=== PATIENT | male | born 1955 | race Caucasian/White ===

== ENCOUNTER → 2018-03-10 | Outpatient (CLI) | payer MEDICARE, OTHER ==
[~2018-03-10] MED LIST: AMLO5 PO; ASCO500 PO; ASPI81CH PO; Ativan1 MG PO; BACL10 PO; BACL20 PO; CARBI50 PO; CARBIDOPA-LEVO1 EAC1 PO; CHOL10002 PO; CLOB.05TC TOP; CYCL10 PO; Diclofenac Pota50 MG; FLUO.05TO; GLUCOSAMINE MSM COMP; HYDR1TAB94 PO; Hydrocodone-Ap1 EA23; IBUP400 PO; LISHYD1012 PO; METO25ER PO; METO50ER PO; Neurontin 300300 MG PO; OXYACE5T PO; PANT40 PO; PARO12.5 PO; PARO25; PARO25 PO; PROP10 PO; Pantoprazole So40 MG; Percocet 5-3251 EACH PO; SUCR1 PO; SUCRALFATE 100 MG/ML PO; TURMERIC500 M2 PO; ZESTORETIC 20-121 EA; [UNRECOGNIZED DRUG - OTHER]
== END ==
LOC: LAB 16:40 → LAB SHORT 16:40
DX: J02.9 Acute pharyngitis, unspecified (principal)
CPT/HCPCS: 87070

== ENCOUNTER 2018-12-03 08:54 | Day surgery (SDC) | payer MEDICARE, OTHER ==
[~2018-12-03] VITALS: Ht 175.3 cm; Wt 70.8 kg
[~2018-12-03 08:54] MED LIST changes: +ACET325 PO; +CBD CREAM TOP; +DULO30 PO; +LISI5 PO; +Omeprazole20 M1 PO
--- NOTE | 2018-12-03 09:44 | NUR ---
PT ADMITTED TO [facility]. AGREES WITH PLANNED SUGERY. MEDS, ALLERGIES AND HX REVIEWED. LUNG SOUNDS CLEAR.
--- NOTE | 2018-12-03 12:26 | NUR ---
Patient up to Ambulate independently. Gait steady. Dressing to procedure site clean, dry, intact with no visible drainage, swelling, erythema or bruising noted. Patient States Post-Procedure ride home has been arranged. Discharged via wheelchair to private car for ride home.
== END 2018-12-03 12:36 | disposition home or self-care (01) ==
LOC: ORSCMMR 08:54 → ORD 10:30 → ORSCMMR 12:36
PROVIDERS: Surgery
PROC: 0JBD0ZZ Excision of Right Upper Arm Subcutaneous Tissue and Fascia, Open Approach (ICD-10-PCS; principal; 2018-12-03 10:30)
DX: D17.1 Benign lipomatous neoplasm of skin and subcutaneous tissue of trunk (principal); I10 Essential (primary) hypertension; Z79.899 Other long term (current) drug therapy
CPT/HCPCS: 88304; J0690; J2250; J3010; J7120

== ENCOUNTER → 2020-10-31 | Outpatient (CLI) | payer MEDICARE, OTHER ==
[2020-10-31 13:41] LABS: BASOPHILS ABSOLUTE AUTO 0.05 K/mm3 (0.00-0.23); BASOPHILS PERCENT AUTO 1 % (0-2); EOSINOPHILS ABSOLUTE AUTO 0.12 K/mm3 (0.00-0.68); EOSINOPHILS PERCENT AUTO 2 % (0-6); Hematocrit 42.8 % (37.0-53.0); Hemoglobin 13.7 g/dL (13.5-17.5); IMMATURE GRAN ABSOLUTE AUTO 0.03 K/mm3 (0.00-0.10); IMMATURE GRAN PERCENT AUTO 0 % (0-1); LYMPHOCYTES ABSOLUTE AUTO 0.96 K/mm3 (0.84-5.20); LYMPHOCYTES PERCENT AUTO 14 % (21-46); MONOCYTES ABSOLUTE AUTO 0.84 K/mm3 (0.16-1.47); MONOCYTES PERCENT AUTO 12 % (4-13); Mean Corpuscular HGB 29.9 pg (26.0-34.0); Mean Corpuscular Volume 93 fL (80-100); Mean Platelet Volume 10.4 fL (9.1-12.4); NEUTROPHILS ABSOLUTE AUTO 4.98 K/mm3 (1.96-9.15); NEUTROPHILS PERCENT AUTO 71 % (41-73); Platelet Count 296 K/mm3 (150-400); RDW Coefficient Variation 13.2 % (11.7-14.2); RDW Standard Deviation 44.9 fL (35.1-46.3); Red Blood Cell Count 4.58 M/mm3 (4.30-5.90); White Blood Cell Count 6.98 K/mm3 (4.00-11.30)
[2020-10-31 14:17] LABS: Alanine Aminotransfer (ALT/SGP 12 U/L (12-78); Albumin, Blood 4.1 g/dL (3.4-5.0); Albumin/Globulin Ratio 1.3 (0.8-1.8); Alk Phos 98 U/L (50-136); Anion Gap 3 mmol/L (6-16); Aspartate Aminotrans (AST/SGOT 21 U/L (12-37); Bilirubin, Total 0.4 mg/dL (0.1-1.0); Blood Urea Nitrogen 20 mg/dL (8-24); Bun/Creatinine Ratio 26.6 (12.0-20.0); CHOL/HDL RATIO 3.2; CO2, Blood 31 mmol/L (21-32); Calcium, Blood 9.4 mg/dL (8.5-10.1); Chloride, Blood 103 mmol/L (98-108); Cholesterol 188 mg/dL (50-200); Creatinine, Blood 0.75 mg/dL (0.60-1.20); Globulin, Blood 3.2 g/dL (2.2-4.0); Glomerular Filtration Rate >60 (60-); Glucose, Blood 94 mg/dL (70-99); HDL Cholesterol 59 mg/dL (>39); LDL/HDL RATIO 1.8; Low Density Lipoprotein Chol 104 mg/dL (0-110); Potassium, Blood 4.3 mmol/L (3.5-5.5); Sodium, Blood 137 mmol/L (136-145); Total Protein, Blood 7.3 g/dL (6.4-8.2); Triglycerides 125 mg/dL (30-160); Very Low Density Lipoprot Chol 25 mg/dL (6-32)
== END | disposition home or self-care (01) ==
LOC: LAB SHORT 09:15
PROVIDERS: Family Medicine
DX: E78.5 Hyperlipidemia, unspecified (principal); I10 Essential (primary) hypertension
CPT/HCPCS: 80053; 80061; 85025

== ENCOUNTER 2021-05-16 09:42 | Emergency (ER) | payer MEDICARE, OTHER ==
[~2021-05-16] VITALS: Ht 175.3 cm; Wt 68.0 kg
== END 2021-05-16 13:10 | disposition home or self-care (01) ==
LOC: ER 09:42
DX: S63.260A Dislocation of metacarpophalangeal joint of right index finger, initial encounter (principal); S63.262A Dislocation of metacarpophalangeal joint of right middle finger, initial encounter; F17.220 Nicotine dependence, chewing tobacco, uncomplicated; Z79.899 Other long term (current) drug therapy; Z79.82 Long term (current) use of aspirin; X50.1XXA Overexertion from prolonged static or awkward postures, initial encounter
CPT/HCPCS: 73130; 73502; 99283-25

== ENCOUNTER → 2023-02-19 | Outpatient (CLI) | payer MEDICARE ==
[2023-02-19 14:41] LABS: BASOPHILS ABSOLUTE AUTO 0.03 K/mm3 (0.00-0.23); BASOPHILS PERCENT AUTO 0 % (0-2); EOSINOPHILS PERCENT AUTO 2 % (0-6); Hematocrit 40.9 % (37.0-53.0); Hemoglobin 13.8 g/dL (13.5-17.5); IMMATURE GRAN ABSOLUTE AUTO 0.02 K/mm3 (0.00-0.10); IMMATURE GRAN PERCENT AUTO 0 % (0-1); LYMPHOCYTES ABSOLUTE AUTO 0.72 K/mm3 (0.84-5.20); LYMPHOCYTES PERCENT AUTO 11 % (21-46); MONOCYTES ABSOLUTE AUTO 0.72 K/mm3 (0.16-1.47); MONOCYTES PERCENT AUTO 11 % (4-13); Mean Corpuscular HGB 30.3 pg (26.0-34.0); Mean Corpuscular HGB Conc 33.7 g/dL (31.5-36.5); Mean Corpuscular Volume 90 fL (80-100); NEUTROPHILS ABSOLUTE AUTO 5.16 K/mm3 (1.96-9.15); NEUTROPHILS PERCENT AUTO 76 % (41-73); Platelet Count 346 K/mm3 (150-400); RDW Coefficient Variation 12.5 % (11.7-14.2); RDW Standard Deviation 41.7 fL (35.1-46.3); Red Blood Cell Count 4.55 M/mm3 (4.30-5.90); White Blood Cell Count 6.75 K/mm3 (4.00-11.30)
[2023-02-19 15:25] LABS: Alanine Aminotransfer (ALT/SGP 15 U/L (12-78); Albumin, Blood 4.2 g/dL (3.4-5.0); Albumin/Globulin Ratio 1.4 (0.8-1.8); Alk Phos 107 U/L (50-136); Anion Gap 2 mmol/L (6-16); Aspartate Aminotrans (AST/SGOT 24 U/L (12-37); Bilirubin, Total 0.3 mg/dL (0.1-1.0); Blood Urea Nitrogen 15 mg/dL (8-24); Bun/Creatinine Ratio 18.9 (12.0-20.0); CHOL/HDL RATIO 2.4; CO2, Blood 30 mmol/L (21-32); Calcium, Blood 9.4 mg/dL (8.5-10.1); Chloride, Blood 101 mmol/L (98-108); Cholesterol 160 mg/dL (50-200); Creatinine, Blood 0.79 mg/dL (0.60-1.20); Globulin, Blood 3.1 g/dL (2.2-4.0); Glomerular Filtration Rate 96 (60-); Glucose, Blood 101 mg/dL (70-99); HDL Cholesterol 66 mg/dL (>39); LDL/HDL RATIO 1.2; Low Density Lipoprotein Chol 77 mg/dL (0-110); Potassium, Blood 4.4 mmol/L (3.5-5.5); Sodium, Blood 133 mmol/L (136-145); Total Protein, Blood 7.3 g/dL (6.4-8.2); Triglycerides 86 mg/dL (30-160); Very Low Density Lipoprot Chol 17 mg/dL (6-32)
== END | disposition home or self-care (01) ==
LOC: LAB SHORT 12:52 → LAB 12:52
PROVIDERS: Family Medicine
DX: I10 Essential (primary) hypertension (principal); Z87.11 Personal history of peptic ulcer disease
CPT/HCPCS: 80053; 80061; 84443; 85025

== ENCOUNTER → 2023-05-30 | Outpatient (CLI) | payer MEDICARE | END | disposition home or self-care (01) | LOC: LAB 10:23 → LAB SHORT 10:23 | DX: I10 Essential (primary) hypertension (principal); R73.01 Impaired fasting glucose | CPT/HCPCS: 36415; 83036 ==

== ENCOUNTER 2024-06-29 20:11 | Inpatient (IN) | payer OTHER ==
[~2024-06-29] VITALS: Ht 175.3 cm; Wt 59.9 kg
[2024-06-29 20:36] LABS: BASOPHILS ABSOLUTE AUTO 0.04 K/mm3 (0.00-0.23); BASOPHILS PERCENT AUTO 0 % (0-2); EOSINOPHILS ABSOLUTE AUTO 0.04 K/mm3 (0.00-0.68); EOSINOPHILS PERCENT AUTO 0 % (0-6); Hemoglobin 10.8 g/dL (13.5-17.5); IMMATURE GRAN PERCENT AUTO 1 % (0-1); LYMPHOCYTES ABSOLUTE AUTO 0.88 K/mm3 (0.84-5.20); LYMPHOCYTES PERCENT AUTO 7 % (21-46); MONOCYTES ABSOLUTE AUTO 0.98 K/mm3 (0.16-1.47); MONOCYTES PERCENT AUTO 8 % (4-13); Mean Corpuscular HGB 32.3 pg (26.0-34.0); Mean Corpuscular HGB Conc 33.8 g/dL (31.5-36.5); Mean Corpuscular Volume 96 fL (80-100); Mean Platelet Volume 9.6 fL (9.1-12.4); NEUTROPHILS ABSOLUTE AUTO 11.06 K/mm3 (1.96-9.15); NEUTROPHILS PERCENT AUTO 84 % (41-73); Platelet Count 296 K/mm3 (150-400); RDW Coefficient Variation 12.3 % (11.7-14.2); Red Blood Cell Count 3.34 M/mm3 (4.30-5.90)
[2024-06-29 20:49] LABS: Albumin, Blood 3.4 g/dL (3.4-5.0); Albumin/Globulin Ratio 1.2 (0.8-1.8); Bilirubin, Total 0.4 mg/dL (0.1-1.0); Bun/Creatinine Ratio 49.4 (12.0-20.0); Calcium, Blood 9.2 mg/dL (8.5-10.1); Creatinine, Blood 0.95 mg/dL (0.60-1.20); Globulin, Blood 2.9 g/dL (2.2-4.0); Potassium, Blood 5.1 mmol/L (3.5-5.5); Total Protein, Blood 6.3 g/dL (6.4-8.2)
[2024-06-29] MEDS ORDERED: Pantoprazole Sodium 40 MG Injection IV ONE (21:40)
[2024-06-29] MEDS ORDERED: NS 1,000 ML IV SCH (23:50)
[2024-06-30] VITALS (32 sets, daily range): BP systolic 84–181; BP diastolic 53–99
[2024-06-30 00:07] LABS: Source, Urine Voided
[2024-06-30 00:11] LABS: Bilirubin, Urine Neg (Neg); Blood, Urine Neg (Neg); Glucose Qualitative, Urine Neg (Neg); Ketones, Urine 1+ (Neg); Leukocyte Esterase, Urine Neg (Neg); Nitrite, Urine Neg (Neg); Protein, Urine 2+ (Neg); Urobilinogen, Urine NORM (Normal)
[2024-06-30 00:24] LABS: Appearance, Urine Clear (Clear); Color, Urine Yellow (P-Yellow)
[2024-06-30 00:25] LABS: Amorphous Light (0-Heavy); Bacteria Rare /hpf; Calcium Oxalate Crystals Mod /hpf; Red Blood Cells, Urine Not Seen /hpf (0-2); Squamous Epithelial Cells Few /hpf (Few); White Blood Cells, Urine Not Seen /hpf (0-5)
[2024-06-30 01:01] LABS: Hematocrit 29.8 % (37.0-53.0); Hemoglobin 9.9 g/dL (13.5-17.5)
[2024-06-30 03:38] LABS: Hematocrit 28.6 % (37.0-53.0); Hemoglobin 9.6 g/dL (13.5-17.5); Mean Corpuscular HGB 31.6 pg (26.0-34.0); Mean Corpuscular HGB Conc 33.6 g/dL (31.5-36.5); Mean Corpuscular Volume 94 fL (80-100); Mean Platelet Volume 9.3 fL (9.1-12.4); Platelet Count 235 K/mm3 (150-400); RDW Coefficient Variation 12.4 % (11.7-14.2); RDW Standard Deviation 42.8 fL (35.1-46.3); Red Blood Cell Count 3.04 M/mm3 (4.30-5.90); White Blood Cell Count 8.12 K/mm3 (4.00-11.30)
[2024-06-30 03:59] LABS: Bun/Creatinine Ratio 56.8 (12.0-20.0); Calcium, Blood 8.8 mg/dL (8.5-10.1); Creatinine, Blood 0.78 mg/dL (0.60-1.20); Potassium, Blood 4.6 mmol/L (3.5-5.5)
[2024-06-30] MEDS ORDERED: CARBIDOPA-LEVO1 EAC9 PO (08:03)
[2024-06-30] MEDS ORDERED: FentaNYL Citrate 50 MCG/ML 2 ML Injection IV PRN ×2 (09:15→19:55)
[2024-06-30 10:29] LABS: Hematocrit 26.5 % (37.0-53.0); Hemoglobin 8.8 g/dL (13.5-17.5); Mean Corpuscular HGB 31.7 pg (26.0-34.0); Mean Corpuscular HGB Conc 33.2 g/dL (31.5-36.5); Mean Corpuscular Volume 95 fL (80-100); Mean Platelet Volume 9.1 fL (9.1-12.4); Platelet Count 263 K/mm3 (150-400); RDW Coefficient Variation 12.3 % (11.7-14.2); RDW Standard Deviation 43.4 fL (35.1-46.3); Red Blood Cell Count 2.78 M/mm3 (4.30-5.90); White Blood Cell Count 11.36 K/mm3 (4.00-11.30)
[2024-06-30] MEDS ORDERED: Cyclobenzaprine HCl 10 MG Tab PO PRN (11:30)
[2024-06-30] MEDS ORDERED: Gabapentin 300 MG Cap PO SCH (14:00)
[2024-06-30] MEDS ORDERED: Sodium, Potassium,Mag Sulfates 354 ML PO SCH (16:00)
[2024-06-30] MEDS ORDERED: [UNRECOGNIZED DRUG - OTHER] PO SCH (16:30)
[2024-06-30] MEDS ORDERED: CARBIDOPA PO SCH (16:30)
[2024-06-30 17:25] LABS: Hematocrit 21.4 % (37.0-53.0); Hemoglobin 7.2 g/dL (13.5-17.5); Mean Corpuscular HGB 32.3 pg (26.0-34.0); Mean Corpuscular HGB Conc 33.6 g/dL (31.5-36.5); Mean Corpuscular Volume 96 fL (80-100); Mean Platelet Volume 9.4 fL (9.1-12.4); Platelet Count 264 K/mm3 (150-400); RDW Coefficient Variation 12.6 % (11.7-14.2); RDW Standard Deviation 43.8 fL (35.1-46.3); Red Blood Cell Count 2.23 M/mm3 (4.30-5.90); White Blood Cell Count 9.42 K/mm3 (4.00-11.30)
[2024-06-30] MEDS ORDERED: NS 500 ML IV ONE (17:44)
--- NOTE | 2024-06-30 17:59 | NUR ---
"Spiritual Care Support | Rapid Response Pt. is being treated by the RR team. This stock order lister was asked to contact [facility]. Call was made but pushed to voicemail. Message to contact the hospital was left regarding Pts. condition. Communicated that voice mail message was left to both attending hospitialist and charge nurse. Pt. was moved by RR team to ICU2, Will remain available."
--- NOTE | 2024-06-30 18:10 | NUR ---
rapid response PT WAS A RAPID RESPONSE IN PCU AT 1745 THIS AFTERNOON. HE WAS BEING CHECKED ON BY A CONFECTIONERY MAKER AND SAW HE WAS PULLING HIS LEADS OFF AND NOT COMMUNICATIONG APPROPRIATELY TO HIS BASELINE. PT WAS FOUND VERY PALE, UNRESPONSIVE, ARCHED BACK LOOKING UP TO THE LEFT AND STIFF. PT'S PUPILS WERE SIZE 8 BILATERALLY, REACTIVE TO LIGHT. PT DIAPHORETIC AND WARM. WITH LOUD STIMULI AND PALPATION HE BECAME RESTLESS AND AGGITATED. HE WAS PULLING OFF LEADS AND THEN PULLED OUT HIS ONE IV. THIS RN AND PCU CHG PLACED EACH AN IV BILAT FOREARMS AND THEN 2 NS BOLUS'S WERE STARTED. UNCROSS MATCHED BLOOD WAS STARTED O+ WELL. DR CARDENAS WAS AT BEDSIDE GIVING ORDERS. PT HAD A BLACK TARRY STOOL IN HIS BRIEF/ SMALL IN NATURE. FAMILY WAS CALLED OF THE EVEN AND MOVE TO ICU 2. DR MAR WAS CALLED AND SHE CAME TO BEDSIDE. SHE IS PLANNING ON SEEING LABS S/P BLOOD TRANSFUSION AND POSSIBLY SCOPING THIS EVENING. PT STARTED AROUSING ONCE HE REACHED ICU. NO PRESSURES WERE STARTED FOR THIS PT. BP STABALIZED OUT SBP 140'S. PULSE WAS 60 UPON ARRIVAL TO PCU FOR RAPID RESPONSE BUT QUICKLY CLIMBED TO 90 THEN TO 120 SINUS TACH. EKG DONE IN ICU.
--- NOTE | 2024-06-30 18:10 | NUR ---
DRY CLEANER HAND / TRANSFER TO ICU UPON CARE ASSUMPTION THIS AM, PT PALE, A&O X4. VSS. SPO2 > 92% ON RA. MONITOR SHOWING SR-ST, HR 70s-110 W/ BRIEF, NONSUSTAINED INCREASE TO 130s W/ URINAL USE IN BED. PT REPORTING PAIN IN NECK & L HIP. PT REPORTING IMPROVEMENT IN PAIN W/ PRN IV PAIN MEDICATION PER EMAR. NS GTT INFUSING PER EMAR. 1/2 OF FIRST DOSE OF BOWEL PREP COMPLETED PRIOR TO PT RAPID RESPONSE. AT APPROX 1715, THIS RN CALLED TO PT BY PCT REQUESTING URGENT ASSISTANCE. PT LAYING IN BED, COLD TO TOUCH, WET W/ SWEAT T/O. PT ATTEMPTING TO COMMUNICATE TO THIS NURSE BUT ONLY ABLE TO MAKE SOUNDS. PT PUPILS DILATED. BP UNABLE TO BE OBTAINED D/T PT WRITHING IN BED, UNABLE TO REMAIN STILL. CBG 90s. PT UNABLE TO COMMUNICATE OR FOLLOW DIRECTIONS, CONTINUING TO WRITHE IN BED. DRY CLEANER HAND TO . PHARMACY TECHNICIAN PER DIEM JOSE M AT BEDSIDE PROVIDING ORDERS. ZOLL PADS IN PLACE. IVF BOLUS INITIATED & EMERGENT BLOOD TRANSFUSION INITIATED WELL. 2L NC IN PLACE, DIFFICULTY OBTAINING CONTINUOUS SPO2 READING. PT BP LOW. MONITOR SHOWING ST, HR 120s-130s. PT TAKEN TO ICU-2 BY BED. UPON ARRIVAL TO ICU, PT NOTED W/ SMALL BLACK TARRY STOOL IN ATTENDS, FIRST BM THIS SHIFT. PT RESPONSIVE, COMMUNICATING W/ STAFF.
[2024-06-30] MEDS ORDERED: NS 1,000 ML IV SCH (18:20)
[2024-06-30] MEDS ORDERED: Pantoprazole Sodium 40 MG Injection IV ONE ×2 (18:25→19:00)
[2024-06-30] MEDS ORDERED: Pantoprazole Sodium 40 MG in NS 50 ML IV SCH (18:25)
[2024-06-30] MEDS ORDERED: Pantoprazole Sodium 40 MG Injection IV SCH (18:25)
[2024-06-30] MEDS ORDERED: NS 500 ML IV SCH (18:45)
[2024-06-30 19:05] LABS: Hematocrit 25.4 % (37.0-53.0); Hemoglobin 8.2 g/dL (13.5-17.5); Mean Corpuscular HGB 32.2 pg (26.0-34.0); Mean Corpuscular HGB Conc 32.3 g/dL (31.5-36.5); Mean Corpuscular Volume 100 fL (80-100); Mean Platelet Volume 9.6 fL (9.1-12.4); Platelet Count 204 K/mm3 (150-400); RDW Coefficient Variation 12.5 % (11.7-14.2); Red Blood Cell Count 2.55 M/mm3 (4.30-5.90); White Blood Cell Count 9.55 K/mm3 (4.00-11.30)
[2024-06-30] MEDS ORDERED: EpiNEPhrine 1 MG/1 ML 1ML Vial ONE (19:14)
[2024-06-30 19:16] LABS: International Normalized Ratio 1.1; Prothrombin Time Results 11.7 Sec (9.7-11.5)
--- NOTE | 2024-06-30 19:18 | NUR ---
TRANSFER TO ICU: TRANSFERRED WITH THE PATIENT TO THE ICU. AT TIME OF TRANSFER, UNIT OF PRBCS WAS TRANSFUSING. BLOOD PRESSURES HAD ALREADY IMPROVED PRIOR TO TRANSFER . ONCE IN THE ICU, VITALS STABLE (WITH SOME SBP >160) AND MAPS >65. EKG COMPLETED AND DR. SHOOK VIEWED EKG. PATIENT'S MENTATION IMPROVED. BY THE END OF SHIFT, PATIENT WAS SPEAKING CLEARLY, ANSWERING QUESTIONS APPROPRIATELY AND ABLE TO MAKE HIS NEEDS KNOWN. PATIENT ABLE TO ASSIST WITH REPOSITION. UNIT OF BLOOD COMPLETED AND LABS DRAWN [address] MAR WAS AT BEDSIDE TO DISCUSS PLAN OF CARE WITH THE PATIENT. AT THIS TIME, PLAN IS TO PERFORM AN ENDOSCOPY ON THE PATIENT THIS EVENING. BRIEF WAS CHANGED. SMALL AMOUNT OF MELANA IN BRIEF. LOADING DOSE OF IV PROTONIX ADMINISTERED. PATIENT SHIVERING AND REPORTED IMPROVEMENT WITH WARM BLANKETS. PATIENT REPORTED HIP PAIN (REPOSITIONED PER PATIENT REQUEST) AND THAT HIS ABDOMINAL PAIN HAD DECREASED. PATIENT DID NOT APPEAR TO BE IN ANY DISTRESS AT END OF SHIFT.
[2024-06-30] MEDS ORDERED: Lactated Ringer's 1,000 ML IV SCH (19:20)
[2024-06-30] MEDS ORDERED: FentaNYL Citrate 50 MCG/ML 2 ML Injection ONE (19:31)
[2024-06-30] MEDS ORDERED: propofoL 20 ML IV ONE (19:31)
[2024-06-30 19:40] LABS: Albumin, Blood 2.6 g/dL (3.4-5.0); Albumin/Globulin Ratio 1.2 (0.8-1.8); Bilirubin, Total 0.2 mg/dL (0.1-1.0); Bun/Creatinine Ratio 56.2 (12.0-20.0); Calcium, Blood 7.4 mg/dL (8.5-10.1); Creatinine, Blood 0.84 mg/dL (0.60-1.20); Globulin, Blood 2.1 g/dL (2.2-4.0); Potassium, Blood 4.7 mmol/L (3.5-5.5); Total Protein, Blood 4.7 g/dL (6.4-8.2)
[2024-06-30] MEDS ORDERED: Dexamethasone Sod Phos 10 MG/ML 1ML VIAL ONE (19:48)
[2024-06-30] MEDS ORDERED: Ondansetron HCl 2 MG / ML 2ML Vial ONE (19:48)
--- NOTE | 2024-06-30 19:56 | NUR ---
06/30/241955 Len Lundberg History, Chart, Medications and Allergies reviewed before start of procedure. Bite Block Placed. PT INTUBATED IN OR2 WITH DR KANG. TRANSPORTED FROM ICU TO OR [address] MONITOR IN PLACE. PT AWAKE AND ORIENTED AND TALKING.
[2024-06-30] MEDS ORDERED: Phenylephrine HCl 100 MCG/ML-NS 10MLSYR (1MG/10ML) ONE (19:59)
[2024-06-30] MEDS ORDERED: Ondansetron HCl 2 MG / ML 2ML Vial IV PRN (20:00)
[2024-06-30] MEDS ORDERED: Metoclopramide HCl 5MG / ML 2ML Vial IV PRN (20:05)
[2024-06-30] MEDS ORDERED: ePHEDrine Sulfate 50 MG/ML 1ML Injection ONE (20:08)
[2024-06-30] MEDS ORDERED: HydrALAZINE HCl 20 MG / ML 1ML Vial IV PRN (20:10)
[2024-06-30] MEDS ORDERED: ePHEDrine Sulfate 50 MG/ML 1ML Injection IV PRN (20:10)
[2024-06-30] MEDS ORDERED: Atropine Sulfate 0.4 MG/1 ML Vial IV PRN (20:15)
[2024-06-30] MEDS ORDERED: Albuterol 2.5 MG/3 ML VIAL INH PRN (20:25)
[2024-06-30] MEDS ORDERED: DOPamine 400 MG/Dextrose 250 ML Bag IV ONE (20:31)
--- NOTE | 2024-06-30 21:00 | NUR ---
ASSUMPTION OF CARE/ASSESSMENT: ASSUMED CARE OF PT AT 1900; BEDSIDE SHIFT REPORT RECIEVED FROM GEMINI ALEXANDER. PT A&O X4, PLEASANT AND COOPERATIVE WITH CARE. DR. MAR AT BEDSIDE SHORTLY AFTER SHIFT CHANGE TO GO OVER ENDOSCOPY PROCEDURE SCHEDULED FOR TONIGHT. PT TAKEN TO OR WITH 3 TRAVEL COTA'S. PT ARRIVED BACK TO THE UNIT AT 2024. THIS RN UPDATED LIZZIE BENJAMIN ABOUT PLAN FOR SURGERY, AND DR. MAR FOLLOWED UP WITH LIZZIE POST-OP TO DISCUSS PROCEDURE. AFTER PROCEDURE PT REMAINS A&O X 4, AND DENIES PAIN AT THIS TIME. PT TAKEN OFF O2 AND IS STABLE WITH SPO2 98<. PT LUNG SOUNDS CLEAR WITH DIM BASES AND DENIES SOB. SR ON MONIOR, SBP 150'S AND DENIES CHEST PAIN/PRESSURE AT THIS TIME. PT ATTENDS CHECKED AND NO MELENA; INCONTINENT OF URINE AT THIS TIME. SKIN OVERALL INTACT BUT PALE, WARM. PIV TO BILAT. FOREARMS THAT ARE PATENT AND SALINE LOCKED. PT DENIES N/V, + BOWEL TONES AND IS TOLERATING PO FLUID INTAKE. BED LOWERED, CALL LIGHT IN REACH.
[2024-06-30 22:45] LABS: Hematocrit 24.1 % (37.0-53.0); Hemoglobin 8.4 g/dL (13.5-17.5)
[2024-06-30] MEDS ORDERED: Lisinopril 10 MG Tab PO ONE (22:55)
--- NOTE | 2024-06-30 22:55 | NUR ---
PT UPDATE: CALLED TONNY PAHCECO TO UPDATE ON PT'S HTN WITH SBP 170'S. ORDERS RECIEVED FOR ONE TIME DOSE OF LISINOPRIL.
[2024-06-30] MEDS ORDERED: Labetalol HCL 5 MG/ML 4ML Injection (Single Dose) IV PRN (23:30)
[2024-07-01] VITALS (34 sets, daily range): BP systolic 114–183; BP diastolic 57–103
[2024-07-01] MEDS ORDERED: Sodium, Potassium,Mag Sulfates 354 ML PO ONE (04:00)
[2024-07-01] MEDS ORDERED: Omeprazole 20 MG CapCR PO SCH (06:00)
--- NOTE | 2024-07-01 06:20 | NUR ---
SHIFT SUMMARY: NO ACUTE CHANGES OVERNIGHT; VSS THROUGHOUT THE NIGHT BESIDES INTERMITTEN HTN. PRN LABETOLOL GIVEN ONCE THIS SHIFT WITH GOOD EFFECT. ATTENDS REMAINS IN PLACE, PT CONTINENT FOR THE MAJORITY OF SHIFT, USING URINAL INDEPENDENT WITH AROUND 600 ML OUTPUT. MODERATE 2-PERSON ASSIST FOR REPOSITIONING. SOME NECK/BACK PAIN THIS MORNING; PRN FENTANYL GIVEN WITH GOOD EFFECT. BED LOWREED, CALL LIGHT IN REACH.
[2024-07-01] MEDS ORDERED: Pantoprazole Sodium 40 MG Injection IV SCH (07:30)
[2024-07-01 08:03] LABS: Hematocrit 23.1 % (37.0-53.0); Hemoglobin 7.9 g/dL (13.5-17.5); Mean Corpuscular HGB 31.9 pg (26.0-34.0); Mean Corpuscular HGB Conc 34.2 g/dL (31.5-36.5); Mean Platelet Volume 9.7 fL (9.1-12.4); Platelet Count 185 K/mm3 (150-400); RDW Coefficient Variation 13.2 % (11.7-14.2); RDW Standard Deviation 44.7 fL (35.1-46.3); Red Blood Cell Count 2.48 M/mm3 (4.30-5.90); White Blood Cell Count 11.75 K/mm3 (4.00-11.30)
[2024-07-01 08:13] LABS: Mean Corpuscular Volume 93 fL (80-100)
[2024-07-01 08:24] LABS: Anion Gap 12 mmol/L (3-11); Blood Urea Nitrogen 41 mg/dL (8-24); Bun/Creatinine Ratio 50.9 (12.0-20.0); CO2, Blood 23 mmol/L (21-32); Calcium, Blood 8.4 mg/dL (8.5-10.1); Chloride, Blood 112 mmol/L (98-108); Creatinine, Blood 0.81 mg/dL (0.60-1.20); Glomerular Filtration Rate 95 (60-); Glucose, Blood 132 mg/dL (70-99); Phosphorus, Blood 3.3 mg/dL (2.5-4.9); Potassium, Blood 4.8 mmol/L (3.5-5.5); Sodium, Blood 142 mmol/L (136-145)
[2024-07-01] MEDS ORDERED: Lisinopril 10 MG Tab PO SCH ×2 (09:00)
[2024-07-01] MEDS ORDERED: DULoxetine HCL 60 MG Capsule DR PO SCH (09:00)
--- NOTE | 2024-07-01 17:06 | NUR ---
SUMMARY PT A/O X4. HAS CHRIONIC PAIN TO BACK AND HIPS, FENTANYL PRN. STILL HAVING BLACK LIQUID STOOL. PT ABLE TO MOVE SELF IN BED AND ASSIST WITH TURNING. WEAK T/O. TOLERATING WATER AND PILLS. NO SIGN OF DISTRESS. NO ACUTE CHANGES THIS SHIFT.
[2024-07-02 03:23] VITALS: BP 155/55
--- NOTE | 2024-07-02 04:12 | NUR ---
Shift summary- Willi had an uneventful night, was able to express that he had pain twice throughout the night which was resolved with repositioning and IV pain medication. Able to use the urinal independently. Incontinent of stool x1- which was noted to be black and tarry. VS stable throughout the night. Patient might benefit from a nutrition and PT/OT consult.
[2024-07-02 04:32] LABS: Hemoglobin 7.3 g/dL (13.5-17.5); Mean Corpuscular HGB 31.5 pg (26.0-34.0); Mean Corpuscular HGB Conc 33.2 g/dL (31.5-36.5); Mean Corpuscular Volume 95 fL (80-100); Mean Platelet Volume 9.5 fL (9.1-12.4); Platelet Count 183 K/mm3 (150-400); RDW Coefficient Variation 13.1 % (11.7-14.2); RDW Standard Deviation 45.2 fL (35.1-46.3); Red Blood Cell Count 2.32 M/mm3 (4.30-5.90); White Blood Cell Count 12.02 K/mm3 (4.00-11.30)
[2024-07-02 05:06] LABS: Anion Gap 11 mmol/L (3-11); Blood Urea Nitrogen 27 mg/dL (8-24); CO2, Blood 24 mmol/L (21-32); Calcium, Blood 8.4 mg/dL (8.5-10.1); Chloride, Blood 108 mmol/L (98-108); Creatinine, Blood 0.73 mg/dL (0.60-1.20); Glomerular Filtration Rate 98 (60-); Glucose, Blood 94 mg/dL (70-99); Phosphorus, Blood 1.9 mg/dL (2.5-4.9); Sodium, Blood 139 mmol/L (136-145)
[2024-07-02 08:08] VITALS: BP 149/68
--- NOTE | 2024-07-02 09:36 | NUR ---
Assumed care of pt at 0700. Bedside report received from Michelle ALEXANDER and Alessia ALEXANDER. Pt is A&O x 4. Answers questions, follows commands, verbalizes needs. Pleasant and cooperative with care. Tremulous. SpO2 90% or greater RA. SR per monitor. BP stable. On assessment, R calf larger than L calf. Dr Trujillo notified. New orders received. On measurement, RLE measures 29 cm midcalf circumference and LLE measures 26 cm midcalf circumference.
[2024-07-02] MEDS ORDERED: Sodium Phosphate Mono/Dibasic 250 MG Tab PO SCH ×2 (10:25→17:00)
[2024-07-02] MEDS ORDERED: Potassium Phos/Sodium Phos 250 MG PACK PO SCH (10:56)
[2024-07-02 12:17] VITALS: BP 153/75
[2024-07-02 12:31] LABS: Hemoglobin 7.4 g/dL (13.5-17.5); Mean Corpuscular HGB Conc 35.2 g/dL (31.5-36.5); Mean Corpuscular Volume 94 fL (80-100); Mean Platelet Volume 9.6 fL (9.1-12.4); Platelet Count 195 K/mm3 (150-400); RDW Coefficient Variation 12.9 % (11.7-14.2); RDW Standard Deviation 44.1 fL (35.1-46.3); Red Blood Cell Count 2.24 M/mm3 (4.30-5.90); White Blood Cell Count 12.58 K/mm3 (4.00-11.30)
[2024-07-02 15:10] VITALS: BP 142/69
--- NOTE | 2024-07-02 16:00 | NUR ---
SUMMARY No acute changes t/o shift. Pt worked with PT and OT today. He experienced dizziness with sitting on edge of bed - no changes in HR or BP. For this reason, pt did not get out of bed this shift. SR per monitor. SpO2 90% or greater RA. Diet advanced to full liquid, pt tolerating well. Pt continues to have black tarry bowel output, incontinent. Voids urine into urinal independently.
[2024-07-02] MEDS ORDERED: Prochlorperazine Edisylate 10 mg Vial IV PRN (18:00)
[2024-07-02 20:10] VITALS: BP 140/63
[2024-07-02] MEDS ORDERED: Acetaminophen 325 MG TABLET PO PRN (21:45)
[2024-07-02 23:01] VITALS: BP 137/64
[2024-07-03] VITALS (9 sets, daily range): BP systolic 134–166; BP diastolic 63–76
--- NOTE | 2024-07-03 03:49 | NUR ---
Shift Summary- Willi had a good night- small complaints of pain- often in his back and hip which he relates to his chronic pain. Call placed to MD for PO tylenol to assist with his pain as that is what he normally takes at home to manage his chronic pain. Multiple repositioning efforts were made throughout the night- encouraged patient the importance of working with PT/OT and increasing his mobility throughout the day as well as his nutrition to get his strength up. Pt expresses an understanding. No other needs throughout the night.
[2024-07-03 04:14] LABS: Hematocrit 19.6 % (37.0-53.0); Hemoglobin 6.7 g/dL (13.5-17.5); Mean Corpuscular HGB 31.9 pg (26.0-34.0); Mean Corpuscular HGB Conc 34.2 g/dL (31.5-36.5); Mean Corpuscular Volume 93 fL (80-100); Mean Platelet Volume 9.6 fL (9.1-12.4); Platelet Count 188 K/mm3 (150-400); RDW Coefficient Variation 12.7 % (11.7-14.2); RDW Standard Deviation 42.9 fL (35.1-46.3); White Blood Cell Count 8.01 K/mm3 (4.00-11.30)
[2024-07-03 04:43] LABS: Anion Gap 9 mmol/L (3-11); Blood Urea Nitrogen 20 mg/dL (8-24); Bun/Creatinine Ratio 27.7 (12.0-20.0); CO2, Blood 26 mmol/L (21-32); Calcium, Blood 8.6 mg/dL (8.5-10.1); Chloride, Blood 105 mmol/L (98-108); Creatinine, Blood 0.72 mg/dL (0.60-1.20); Glomerular Filtration Rate 98 (60-); Glucose, Blood 86 mg/dL (70-99); Phosphorus, Blood 3.1 mg/dL (2.5-4.9); Potassium, Blood 3.5 mmol/L (3.5-5.5); Sodium, Blood 136 mmol/L (136-145)
[2024-07-03] MEDS ORDERED: NS 500 ML IV SCH (06:35)
[2024-07-03 16:21] LABS: Hematocrit 23.4 % (37.0-53.0); Hemoglobin 8.4 g/dL (13.5-17.5)
--- NOTE | 2024-07-03 18:22 | NUR ---
SHIFT SUMMARY PT A&OX4; CALM AND COOPERATIVE WITH CARE. PT RESTING IN BED. UP WITH 1 PERSON ASSIST. WORKED WITH PHYSICAL THERAPY THIS AFTERNOON. PT REPORT HIP PAIN, MEDICATED PER EMAR. PT REPORTING DIZZINESS, REPORTS IMPROVEMENT POST TRANSFUSION. RECEIVED 1 UNIT PRBC. TELE SINUS 70-90'S, T/O SHIFT. BP ELEVATED BUT STABLE. SPO2 >90% ON RA, BREATHING EVEN AND UNLABORED. ABD SOFT, NONTENDER. PT CONTINUES TO HAVE DARK TARRY STOOLS. OTHER VSS. NO OTHER ACUTE CHANGES NOTED. WILL CONTINUE TO MONITOR.
[2024-07-04 03:05] VITALS: BP 147/74
[2024-07-04 04:34] LABS: Hemoglobin 9.4 g/dL (13.5-17.5)
[2024-07-04 07:54] VITALS: BP 149/69
--- NOTE | 2024-07-04 18:37 | NUR ---
SHIFT SUMMARY PT REMAINS A&OX4. UP TO RECLINER FOR MOST OF THE DAY. WENT ON TWO WALKS WITH WALKER AND W/C BACKUP TODAY, TOLERATED WELL. OVERALL PT STATES HES FEELING BETTER BUT CONTINUES TO C/O OF GENERALIZED PAIN. MEDICATED WITH PRN ACETAMINOPHEN. TOLERATING PO INTAKE, APPETITE REMAINS DIMINISHED. USING URINAL APPROPRIATELY. NO OTHER ACUTE CHANGES NOTED.
[2024-07-04 19:59] VITALS: BP 125/66
[2024-07-05 03:41] VITALS: BP 125/65
[2024-07-05 03:44] LABS: Hemoglobin 9.4 g/dL (13.5-17.5); Mean Corpuscular HGB 31.8 pg (26.0-34.0); Mean Corpuscular HGB Conc 34.8 g/dL (31.5-36.5); Mean Corpuscular Volume 91 fL (80-100); Platelet Count 253 K/mm3 (150-400); RDW Coefficient Variation 13.4 % (11.7-14.2); RDW Standard Deviation 43.2 fL (35.1-46.3); Red Blood Cell Count 2.96 M/mm3 (4.30-5.90); White Blood Cell Count 7.08 K/mm3 (4.00-11.30)
[2024-07-05 04:02] LABS: Albumin, Blood 3.1 g/dL (3.4-5.0); Anion Gap 10 mmol/L (3-11); Blood Urea Nitrogen 11 mg/dL (8-24); Bun/Creatinine Ratio 15.8 (12.0-20.0); CO2, Blood 27 mmol/L (21-32); Calcium, Blood 8.9 mg/dL (8.5-10.1); Chloride, Blood 105 mmol/L (98-108); Glomerular Filtration Rate 99 (60-); Glucose, Blood 94 mg/dL (70-99); Phosphorus, Blood 3.3 mg/dL (2.5-4.9); Potassium, Blood 3.6 mmol/L (3.5-5.5); Sodium, Blood 138 mmol/L (136-145)
--- NOTE | 2024-07-05 04:13 | NUR ---
SHIFT NOTE: PT A/OX4 ABLE TO USE CALL LIGHT TO MAKE NEEDS KNOWN. HE IS ON RA WITH SPO2>95%, DENIES SOB. HE IS 1P AST TO THE BATHROOM. ONE SMALL BM THIS SHIFT. PT DENIES PAIN, Q2 TURNED BY STAFF. WILL CONTINUE TO MONITOR AND REPORT TO ONCOMING RN
[2024-07-05 07:32] VITALS: BP 143/71
--- NOTE | 2024-07-05 09:11 | NUR ---
AM NOTE: PATIENT SITTING IN RECLINER THIS AM WITH HEATING PAD ON NECK. DENIES PAIN, COMPLAINS OF GENERAL SORENESS IN SHOULDERS, NECK AND BACK. USING WALKER WITH SBA. PATIENT STATES HE WOULD LIKE TO GO ON A WALK TODAY. NEUROPATHY TO UPPER AND LOWER EXTREMITIES. MEDICAL STATUS, NO TELE. SBP 140'S. HR 90'S. PPP. DENIES CHEST PAIN/PRESSURE/PALPITATIONS. IV'S SALINE LOCKED. DENIES ABDOMINAL PAIN/NAUSEA. ATTENDS IN PLACE. SMALL BOWEL MOVEMENT THIS AM, NO SIGNS OF BLEEDING. TOLERATING DIET AT THIS TIME. ON ROOM AIR, LUNGS SOUNDING CLEAR. DENIES SOB/COUGH. EVEN AND UNLABORED RESPIRATIONS. SKIN OVERALL PALE AND COOL. SCATTERED BRUISING TO UPPER EXTREMITIES. PATIENT BACK TO BED AT THIS TIME, CALL LIGHT IN REACH, DENIES NEEDS.
[2024-07-05 11:22] VITALS: BP 95/57
[2024-07-05 11:49] VITALS: BP 129/72
[2024-07-05 15:06] VITALS: BP 125/67
--- NOTE | 2024-07-05 15:45 | NUR ---
SOURAV SAMUEL IN TO PICK PATIENT UP. THIS RN REMOVED IV'S AND REVIEWED DISCHARGE INSTRUCTIONS. WE DISCUSSED FOLLOW UPS WITH DR. WALKER AND DR. MAR, NEW MEDICATIONS, MEDICATIONS TO STOP, SIGNS AND SYMPTOMS OF WHEN TO RETURN AND HOME HEALTH. PATIENT DISCHARGED VIA WHEELCHAIR WITH ALL PERSONAL BELONGINGS.
== END 2024-07-05 15:47 | disposition home health service (06) | DRG 378 ==
LOC: ER 20:11 → PCU 20:12 → ICUE 06-30 15:09 → PCU 06-30 15:10 → ICUE 06-30 18:09 → PCU 07-01 19:15
PROVIDERS: Emergency Medicine; Internal Medicine; Nurse Practitioner Acute Care; Surgery; ADMIT Internal Medicine
PROC: 3E033XZ Introduction of Vasopressor into Peripheral Vein, Percutaneous Approach (ICD-10-PCS; 2024-06-30)
PROC: 0W3P8ZZ Control Bleeding in Gastrointestinal Tract, Via Natural or Artificial Opening Endoscopic (ICD-10-PCS; principal; 2024-06-30 19:30)
PROC: 30233N1 Transfusion of Nonautologous Red Blood Cells into Peripheral Vein, Percutaneous Approach (ICD-10-PCS; 2024-07-03)
DX: K26.4 Chronic or unspecified duodenal ulcer with hemorrhage (principal); D62 Acute posthemorrhagic anemia; I10 Essential (primary) hypertension; F32.A Depression, unspecified; F41.9 Anxiety disorder, unspecified; G62.9 Polyneuropathy, unspecified; K55.20 Angiodysplasia of colon without hemorrhage; G89.4 Chronic pain syndrome; G20.A1 Parkinson's disease without dyskinesia, without mention of fluctuations; Z87.891 Personal history of nicotine dependence; Z79.899 Other long term (current) drug therapy; Z79.82 Long term (current) use of aspirin; Z79.811 Long term (current) use of aromatase inhibitors; M41.83 Other forms of scoliosis, cervicothoracic region; Z98.890 Other specified postprocedural states
CPT/HCPCS: 36415; 36430; 74177; 80048; 80053; 80069; 81001; 82947; 83690; 83735; 83880; 84484; 85014; 85018; 85025; 85027; 85610; 86850; 86900; 86901; 86923; 93005; 93010; 93971; 96374-59; 96375; 97110; 97162; 97165; 97530; 99285-25; A9270; G0378; J0171; J1100; J1265; J2371; J2405; J2470; J2704; J3010; J7030; J7040; J7120; P9016; Q9967

== ENCOUNTER 2024-08-04 14:06 | Day surgery (SDC) | payer OTHER ==
[~2024-08-04] VITALS: Ht 175.3 cm; Wt 60.2 kg
[~2024-08-04 14:06] MED LIST changes: +CARBIDOPA-LEVO1 EAC9 PO; +Lidocaine 2% 5 ML SDV ONE; +Lidocaine HCl/Pf 1% 5 ML VIAL ONE
[2024-08-04] MEDS ORDERED: ASCO500 (14:25)
[2024-08-04] MEDS ORDERED: MELATONIN5 M1 (14:25)
[2024-08-04] MEDS ORDERED: ASPI81CH (14:25)
[2024-08-04] MEDS ORDERED: propofoL 40 ML IV ONE (14:44)
[2024-08-04] MEDS ORDERED: Lactated Ringer's 1,000 ML IV ONE ×2 (14:44→14:58)
[2024-08-04 16:26] VITALS: BP 163/80
== END 2024-08-04 16:20 | disposition home or self-care (01) ==
LOC: ORSCSDS 14:06
PROVIDERS: Surgery
PROC: 0DBL8ZX Excision of Transverse Colon, Via Natural or Artificial Opening Endoscopic, Diagnostic (ICD-10-PCS; principal; 2024-08-04 15:15)
DX: Z12.11 Encounter for screening for malignant neoplasm of colon (principal); K63.5 Polyp of colon; I10 Essential (primary) hypertension; G20.A1 Parkinson's disease without dyskinesia, without mention of fluctuations; Z87.11 Personal history of peptic ulcer disease; F41.9 Anxiety disorder, unspecified; F32.A Depression, unspecified
CPT/HCPCS: 88305; J2001; J2003; J2704; J7120